=== PATIENT | male | born 1945 | race Caucasian/White ===

== ENCOUNTER → 2017-05-18 | Outpatient (CLI) | payer MEDICARE, OTHER ==
[~2017-05-18] MED LIST: ASPIRIN EC81 MG PO; BENGAY/ICY HOT/30 GM TOP; CENTRUM SILVER1 TAB PO; CPAP; FLOMAX0.4 MG PO; FLONASE 50 MCG/16 GM NOSE; GLUCOTROL5 MG PO; GUAIFENESIN-COD10 ML PO; IMDUR30 MG PO; KEFLEX250 MG PO; LIPITOR40 MG PO; MAG-OX-400(241400 MG PO; PLAVIX75 MG PO; PRINIVIL OR ZES10 MG PO; PROAIR HFA8.5 GM INH; PROTONIX40 MG PO; TENORMIN25 MG PO; TUMS REGULAR ST1 TAB PO; VENLAFAXINE HCL75 MG PO; VITAMIN D35000 UNI1 PO
== END | disposition disaster alternative care site (69) ==
LOC: GRAD 16:04
DX: R10.9 Unspecified abdominal pain (principal); N20.2 Calculus of kidney with calculus of ureter; K57.90 Diverticulosis of intestine, part unspecified, without perforation or abscess without bleeding; N40.0 Benign prostatic hyperplasia without lower urinary tract symptoms; Z90.49 Acquired absence of other specified parts of digestive tract

== ENCOUNTER → 2017-05-19 | Day surgery (SDC) | payer MEDICARE, OTHER ==
[~2017-05-19] VITALS: Ht 175.3 cm; Wt 92.2 kg
--- NOTE | ~2017-05-19 | HP ---
PATIENT'S NAME: SEGUN BARRERA [facility] AGE: 71 Y [address] ROOM: [place] [address] LOCATION: [facility] [place] ADMIT DATE: 05/19/2017 History & Physical DISCHARGE DATE: FAMILY PHYSICIAN: Jad Zamarripa MD ATTENDING PHYSICIAN: Marisela Zacarias DATE OF SERVICE: HISTORY: A 71-year-old male, who was well until Wednesday when he began having left renal colicky pain. This resolved and then on 05/17/2017, he again had pain. He was seen in the office on 05/18/[address] scan was done showing a 7 mm stone in the left mid ureter with obstruction. Throughout the evening and night, he continued to have left renal colicky pain and seen now for insertion of left ureteral stent and then we will proceed with ESWL. He has a past history of having stones in the past and he has had numerous procedures for his stones. PAST MEDICAL HISTORY: Illnesses: Arteriosclerotic heart disease, hypertension. Operations: Cardiac bypass, appendectomy, cardiac cath with stents in June 2013 and April 2014. ALLERGIES: CODEINE. PHYSICAL EXAMINATION: GENERAL: A well-developed, well-nourished male. CHEST: Clear. HEART: Normal sinus rhythm. ABDOMEN: Soft with no palpable masses. : Normal penis. Testicles are normal. Prostate is flat. RECTAL: Negative. IMPRESSION: Left ureteral stone with left renal colic. PLAN: Cystoscopy and stent. PATIENT'S NAME: SEGUN BARRERA [facility] AGE: 71 Y [address] ROOM: [place] [address] LOCATION: [facility] [place] ADMIT DATE: 05/19/2017 History & Physical DISCHARGE DATE: FAMILY PHYSICIAN: Jad Zamarripa MD ATTENDING PHYSICIAN: Marisela Zacarias MARISELA ZACARIAS MD EKL/modl /[id number] D: 805 T: HISTORY & PHYSICAL
--- NOTE | ~2017-05-19 | OR ---
PATIENT'S NAME: SEGUN BARRERA [facility] AGE: 71 Y [address] ROOM: [place] [address] [place] [facility] [place]: 05/19/2017 OR/Procedure Report DISCHARGE DATE: FAMILY PHYSICIAN: Jad Zamarripa MD ATTENDING PHYSICIAN: Marisela Zacarias SURGEON: Marisela Zacarias MD SHALE PLANER OPERATOR HELPER: DATE OF PROCEDURE: 05/19/2017 PREOPERATIVE DIAGNOSES: 1. Left ureteral stone with hydronephrosis. 2. Left renal colic. POSTOPERATIVE DIAGNOSES: 1. Left ureteral stone with hydronephrosis. 2. Left renal colic. PROCEDURE: Cystoscopy, insertion of stent. PROCEDURE IN DETAIL: After adequate anesthesia, he was prepped and draped. A 21-inch semi-scope was passed. Anterior urethra was normal. Prostatic fossa showed some early lateral lobe enlargement. The bladder was normal. X-rays were taken and there was a stone in the proximal ureter. A guidewire was passed, and over the guidewire, a 4.8 multilink stent was passed, coiled nicely in the kidney, the other in the bladder. He tolerated the procedure fine. We will make arrangements for an ESWL of this stone. MARISELA ZACARIAS MD EKL/modl /[id number] d: 05/19/17 1028 t: 05/20/17 0444, OPERATIVE SUMMARY
== END ==
LOC: GSDC 07:30 → GPOC 08:00 → EDSTATUS 08:00
PROC: 0T778DZ Dilation of Left Ureter with Intraluminal Device, Via Natural or Artificial Opening Endoscopic (ICD-10-PCS; principal; 2017-05-19)
DX: N13.2 Hydronephrosis with renal and ureteral calculous obstruction (principal); I10 Essential (primary) hypertension; E78.00 Pure hypercholesterolemia, unspecified; I25.10 Atherosclerotic heart disease of native coronary artery without angina pectoris; G47.33 Obstructive sleep apnea (adult) (pediatric); N40.1 Benign prostatic hyperplasia with lower urinary tract symptoms; E11.9 Type 2 diabetes mellitus without complications; K21.9 Gastro-esophageal reflux disease without esophagitis; Z98.890 Other specified postprocedural states; Z95.5 Presence of coronary angioplasty implant and graft; Z95.1 Presence of aortocoronary bypass graft; Z90.49 Acquired absence of other specified parts of digestive tract; Z98.41 Cataract extraction status, right eye; Z98.42 Cataract extraction status, left eye; Z98.84 Bariatric surgery status
CPT/HCPCS: C1769; C2617; J0713; J2001; J7030; J7040

== ENCOUNTER → 2017-05-25 | Day surgery (SDC) | payer MEDICARE, OTHER ==
[~2017-05-25] VITALS: Ht 175.3 cm; Wt 90.4 kg
--- NOTE | ~2017-05-25 | OR ---
PATIENT'S NAME: SEGUN BARRERA [facility] AGE: 71 Y [address] ROOM: [place] [address] LOCATION: [facility] [place] ADMIT DATE: 05/25/2017 OR/Procedure Report DISCHARGE DATE: FAMILY PHYSICIAN: Jad Zamarripa MD ATTENDING PHYSICIAN: Marisela Zacarias SURGEON: Marisela Zacarias MD SAFETY EQUIPMENT TESTER: DATE OF PROCEDURE: 05/25/2017 PREOPERATIVE DIAGNOSIS: Left ureteral stone. POSTOPERATIVE DIAGNOSIS: Left ureteral stone. PROCEDURE: ESWL of left ureteral stone. PROCEDURE IN DETAIL: The patient was taken to the operating room 5, placed on the lithotripsy table, and with fluoroscopy, the stone was localized in his mid left ureter. Impulses were then directed at the stone starting at 14 kV and increased to 26 kV, a total of 3000 impulses were directed. At the end of the procedure, it was partly fragmented but not completely. We will obtain a KUB x-ray in 2 weeks. MARISELA ZACARIAS MD EKL/modl /[id number] d: 05/25/17 1201 t: 05/26/17 1054, OPERATIVE SUMMARY
[2017-05-25 08:18] LABS: BASOPHIL % 0.4 %; EOSINOPHIL # 0.2 K/uL (0.0-0.5); EOSINOPHIL % 2.7 %; HEMATOCRIT 45.8 % (37.0-53.0); IMMATURE GRANULOCYTE % 0.3 %; LYMPHOCYTE # 1.6 K/uL (0.8-4.0); LYMPHOCYTE % 22.7 %; MCH 29.3 pg (27.0-34.0); MCHC 32.8 gm/dL (32.0-36.5); MCV 89.5 fl (83.0-98.0); MONOCYTE # 0.8 K/uL (0.0-1.0); MONOCYTE % 11.8 %; MPV 9.6 fl (9.4-12.4); NEUTROPHIL # (ANC) 4.4 K/uL (1.4-9.0); NEUTROPHIL % 62.1 %; NRBC % 0 /100WBC (0-0.00); PLATELET COUNT 203 K/uL (150-450); RBC 5.12 M/uL (3.50-5.50); RDW-CV 14.2 % (11.9-14.6); WBC 7.1 K/uL (4.0-11.0)
[2017-05-25 08:31] LABS: ALBUMIN 3.4 gm/dL (3.5-5.0); CALCIUM 9.1 mg/dL (8.5-10.5); TOTAL PROTEIN 7.1 g/dL (6.0-8.4)
== END | disposition disaster alternative care site (69) ==
LOC: GSDC 07:34
PROVIDERS: Urology
PROC: 0TF7XZZ Fragmentation in Left Ureter, External Approach (ICD-10-PCS; principal; 2017-05-25)
DX: N20.1 Calculus of ureter (principal); I10 Essential (primary) hypertension; I25.10 Atherosclerotic heart disease of native coronary artery without angina pectoris; Z88.5 Allergy status to narcotic agent; Z90.49 Acquired absence of other specified parts of digestive tract; Z95.5 Presence of coronary angioplasty implant and graft; Z98.890 Other specified postprocedural states
CPT/HCPCS: J2001; J7030

== ENCOUNTER → 2017-06-10 | Outpatient (CLI) | payer MEDICARE, OTHER | END | disposition disaster alternative care site (69) | LOC: GRAD 09:55 | DX: N20.0 Calculus of kidney (principal); N42.89 Other specified disorders of prostate; Z96.0 Presence of urogenital implants ==

== ENCOUNTER → 2017-06-15 | Day surgery (SDC) | payer MEDICARE, OTHER ==
[~2017-06-15] VITALS: Ht 176.5 cm; Wt 88.0 kg
--- NOTE | ~2017-06-15 | OR ---
PATIENT'S NAME: SEGUN BARRERA [facility] AGE: 71 Y [address] ROOM: [place] [address] LOCATION: [facility] [place] ADMIT DATE: 06/15/2017 OR/Procedure Report DISCHARGE DATE: FAMILY PHYSICIAN: Jad Zamarripa MD ATTENDING PHYSICIAN: Marisela Zacarias SURGEON: Marisela Zacarias MD CONVEYOR INSTALLER: DATE OF PROCEDURE: 06/15/2017 PREOPERATIVE DIAGNOSIS: Left mid ureteral stone. POSTOPERATIVE DIAGNOSIS: Left mid ureteral stone. OPERATION: Extracorporeal shock wave lithotripsy, ureteral stone. PROCEDURE: The patient was taken to operating room 5, placed on the lithotripsy table and with fluoroscopy, the stone was localized. Impulses were directed at the stone starting at 18 kV increased to 24 kV. A total of 3000 impulses were directed. The stone appeared to fragment much better than it had on the previous one. He was then accompanied to recovery area. MARISELA ZACARIAS MD EKL/modl /[id number] d: 06/15/172103 t: 06/17/17 0511, OPERATIVE SUMMARY
== END | disposition disaster alternative care site (69) ==
LOC: GPOC 06-11 17:00 → GSDC 07:00
PROC: 0TF7XZZ Fragmentation in Left Ureter, External Approach (ICD-10-PCS; principal; 2017-06-15)
DX: N20.1 Calculus of ureter (principal); I10 Essential (primary) hypertension; I25.10 Atherosclerotic heart disease of native coronary artery without angina pectoris; E78.5 Hyperlipidemia, unspecified; E11.40 Type 2 diabetes mellitus with diabetic neuropathy, unspecified; G47.33 Obstructive sleep apnea (adult) (pediatric); Z87.19 Personal history of other diseases of the digestive system; Z95.5 Presence of coronary angioplasty implant and graft; K21.9 Gastro-esophageal reflux disease without esophagitis; Z88.5 Allergy status to narcotic agent; Z91.048 Other nonmedicinal substance allergy status; Z79.899 Other long term (current) drug therapy; Z79.82 Long term (current) use of aspirin; Z79.02 Long term (current) use of antithrombotics/antiplatelets; Z90.49 Acquired absence of other specified parts of digestive tract; Z98.49 Cataract extraction status, unspecified eye; Z98.84 Bariatric surgery status; Z98.890 Other specified postprocedural states
CPT/HCPCS: J2001; J7030

== ENCOUNTER → 2017-06-30 | Outpatient (CLI) | payer MEDICARE, OTHER | END | disposition disaster alternative care site (69) | LOC: GRAD 10:27 | DX: N20.0 Calculus of kidney (principal) ==